=== PATIENT | female | born 1995 | race Two or more races ===

== ENCOUNTER 2019-04-23 14:54 | Emergency (ER) | payer MEDICAID ==
[~2019-04-23] VITALS: Ht 160 cm; Wt 64.0 kg
[2019-04-23 14:56] VITALS: BP 109/66
[2019-04-23] MEDS ORDERED: SODIUM CHLORIDE 0.9% 1,000 ML IV ONE (18:15)
[2019-04-23] MEDS ORDERED: CYANOCOBALAMIN 1000MCG/ML VIAL IM ONE (18:15)
== END 2019-04-23 19:18 | disposition left against medical advice (07) ==
LOC: ER 15:08
DX: F10.129 Alcohol abuse with intoxication, unspecified (principal); F91.8 Other conduct disorders; R45.1 Restlessness and agitation; Z78.1 Physical restraint status; Y90.9 Presence of alcohol in blood, level not specified
CPT/HCPCS: 99283; J3420; J7030